=== PATIENT | female | born 1955 | race Caucasian/White ===

== ENCOUNTER 2017-10-25 08:41 | Day surgery (SDC) | payer OTHER ==
[~2017-10-25] VITALS: Ht 153.7 cm; Wt 69.4 kg
[~2017-10-25 08:41] MED LIST: ADDERALL XR 3030 MG PO; AMITRIPTYLINE H10 MG PO; AMITRIPTYLINE H25 MG PO; AMPHETAMINE SAL20 MG PO; ATORVASTATIN CA40 MG PO; CHANTIX1 MG PO; CLOPIDOGREL75 MG PO; CYCLOBENZAPRINE10 MG PO; Colace PO; DOCUSATE SODIU100 MG PO; Dulcolax PO; Dulcolax PR; EFFEXOR75 MG PO; Effexor PO; Habitrol,Nicoderm CQ TD; KEFLEX500 MG PO; KEPPRA1000 MG PO; Keppra PO; LISINOPRIL10 MG PO; LISINOPRIL20 MG PO; LYRICA25 MG PO; LYRICA50 MG PO; Lipitor PO; MAG-AL PLUS SUS30 ML PO; METHADONE5 MG PO; MS CONTIN,ORAMO60 MG PO; MS Contin,Oramorph S PO; Maalox, Mylanta PO; Miralax, Glycolax PO; Norvasc PO; OXYCODONE HCL5 MG PO; OXYCODONE5 MG PO; OXYMORPHONE HCL15 MG PO; OxyCONTIN PO; PANTOPRAZOLE SO40 MG PO; PLAVIX75 MG PO; PRAVACHOL80 MG PO; PRAVASTATIN SOD80 MG PO; PROAIR HFA8.5 GM IH; PROMETHAZINE HC25 M1 PO; PROTONIX40 MG PO; Plavix PO; REQUIP0.5 MG PO; SENNA8.6 MG PO; SYMBICORT60 INHALAT IH; Senokot S,Pericolace PO; Strattera PO; TAB-A-VITE-MIN1 EACH PO; TOPAMAX50 MG PO; TOPIRAMATE100 MG PO; TRAMADOL HCL50 MG PO; TYLENOL EXTRA500 MG PO; TYLENOL REGULA325 MG PO; Theragran PO; Topamax PO; VESICARE5 MG PO; VITAMIN D31000 UNI2 PO; ZANAFLEX4 MG PO; blood pressure; buspirone; dilaudid; levetiracetam; lyrica; ondansetron; oxyCODONE PO; percocet; strattera; tizanidine; topiramate; venlafaxine
[2017-10-25 09:22] VITALS: BP 131/84
[2017-10-25 14:27] VITALS: BP 131/75
[2017-10-25 17:40] LABS: HEMATOCRIT 37.4 % (36.0-46.0); MCH 30.4 PG (29.0-34.0); MCHC 32.1 G/DL (30.0-36.0); MCV 94.7 FL (83-99); MEAN PLAT.VOLUME 9.5 uM^3 (9.5-12.4); PLATELET COUNT 193 K/uL (156-360); RBC DIS.WIDTH-CV 13.2 % (11.8-14.6); RBC DIS.WIDTH-SD 45.6 % (39-53); RED BLOOD COUNT 3.95 M/uL (3.80-5.20)
[2017-10-25 18:02] LABS: ANION GAP 8 MEQ/L (2-14); CHLORIDE 108 MEQ/L (99-109); GFR ESTIMATE (CALCULATED) > 59 mL/min/; POTASSIUM 4.6 MEQ/L (3.7-5.4); SAMPLE HEMOLYSIS CHECK 0; SAMPLE ICTERIC CHECK 0; SAMPLE LIPEMIA CHECK 0; SODIUM 137 MEQ/L (136-147); UREA NITROGEN (BUN) 18 mg/dL (9-23)
[2017-10-25 18:10] LABS: GLUCOSE 194 mg/dL (70-99)
[2017-10-25 20:18] VITALS: BP 133/94
[2017-10-26 00:06] VITALS: BP 109/55
[2017-10-26 04:17] VITALS: BP 133/76
[2017-10-26 07:11] LABS: HEMATOCRIT 34.5 % (36.0-46.0); MCH 30.7 PG (29.0-34.0); MCHC 32.5 G/DL (30.0-36.0); MCV 94.5 FL (83-99); MEAN PLAT.VOLUME 9.4 uM^3 (9.5-12.4); PLATELET COUNT 203 K/uL (156-360); RBC DIS.WIDTH-CV 13.2 % (11.8-14.6); RBC DIS.WIDTH-SD 46.1 % (39-53); RED BLOOD COUNT 3.65 M/uL (3.80-5.20)
[2017-10-26 07:15] VITALS: BP 117/65
[2017-10-26 07:37] LABS: ANION GAP 5 MEQ/L (2-14); CHLORIDE 110 MEQ/L (99-109); GFR ESTIMATE (CALCULATED) > 59 mL/min/; GLUCOSE 121 mg/dL (70-99); POTASSIUM 4.5 MEQ/L (3.7-5.4); SAMPLE HEMOLYSIS CHECK 0; SAMPLE ICTERIC CHECK 0; SAMPLE LIPEMIA CHECK 0; SODIUM 140 MEQ/L (136-147); UREA NITROGEN (BUN) 13 mg/dL (9-23)
[2017-10-26] MEDS ORDERED: TRAMADOL HCL50 MG PO (08:53)
== END 2017-10-26 11:38 | disposition home or self-care (01) ==
LOC: SDC 08:41 → 2SOUTH 12:15 → ENRESERV 12:27 → 2EAST 13:58 → SDC 14:30 → 2EAST 10-26 11:38
PROVIDERS: Obstetrics & Gynecology Gynecologic Oncology
DX: D06.9 Carcinoma in situ of cervix, unspecified (principal); N88.2 Stricture and stenosis of cervix uteri; I10 Essential (primary) hypertension; K51.90 Ulcerative colitis, unspecified, without complications; E78.5 Hyperlipidemia, unspecified; G40.909 Epilepsy, unspecified, not intractable, without status epilepticus; Z86.73 Personal history of transient ischemic attack (TIA), and cerebral infarction without residual deficits; F11.11 Opioid abuse, in remission; F17.200 Nicotine dependence, unspecified, uncomplicated; I49.5 Sick sinus syndrome; Z95.0 Presence of cardiac pacemaker; J44.9 Chronic obstructive pulmonary disease, unspecified; Z86.19 Personal history of other infectious and parasitic diseases; Z91.012 Allergy to eggs; Z88.7 Allergy status to serum and vaccine; Z88.6 Allergy status to analgesic agent
CPT/HCPCS: 80048; 85027; 88307; 94640; 94640 76; 99202; G0378; J0131; J0171; J0330; J1100; J1170; J1580; J2250; J2405; J2710; J3010; J7050; S0030